=== PATIENT | male | born 1950 | race Two or more races ===

== ENCOUNTER 2025-09-16 15:12 | Inpatient (IN) | payer OTHER ==
[~2025-09-16] VITALS: Ht 162.6 cm; Wt 73.3 kg
--- NOTE | 2025-09-16 15:33 | ED.PDOC ---
History of Present Illness HPI Comments HPI: This is a 75 year old male presenting to the ED with chief complaint of high blood pressure. Patient reports that he visited [facility] today due to having clicking in his left ear last night that has since resolved, however, he was found to have high blood pressure and advised to come into the ED for further evaluation. Patient relays that he had some dizziness and blurred vision 2 days ago, but that has also since resolved. Patient states that he has never visited a doctor in his life and is pending his first PCP appointment next month. Patient notes that he is currently asymptomatic. Patient denies any chest pain, SOB, dizziness, N/V, headache, or syncope. Past Medical History: Denies Past Surgical History: Denies Social History: Denies smoking, drinking, or drug use. Medications: None Allergies: NKDA HPI: Poor Historian. Patient is completely asymptomatic Past Medical History: Past Surgical History: REVIEW OF SYSTEMS: CONSTITUTIONAL: Denies acute: fever, diaphoresis, chills, generalized weakness. HEAD: Denies acute: headache, photophobia Eyes: Denies acute: Double vision, vision loss, eye pain, eye discharge. EARS: Denies acute: tinnitus, hearing loss, ear discharge, ear pain, THROAT: Denies acute: sore throat, swelling, difficulty swallowing , pain with swallowing, change in voice. NECK: Denies acute: neck pain, neck swelling, stiff neck. HEART: Denies acute : chest pain, palpitations, LUNGS: Denies acute: SOB, wheezing, cough, hemoptysis ABDOMEN: Denies acute: abdominal pain, Nausea, Vomiting, diarrhea, melena , hematemesis, hematochezia SKIN: Denies acute: rash, redness, lesions, itchiness. EXTREMITIES: Denies acute: calf pain, numbness, tingling, weakness, denies pain in extremity. Denies acute: Low back pain. Neuro: Denies acute: focal neurological deficit, motor or sensory focal neurological deficit, tremors, seizure like activity, confusion, dizziness, change in mental status, loss of bowel or bladder function, cauda equina like symptoms. : Denies acute: dysuria, hematuria, flank pain, increase in urinary frequency. PSYCH: Denies acute: hallucination, suicidal ideation, homicidal ideation. PHYSICAL EXAM: General: ----no----acute distress, awake and alert. Head: normocephalic, atraumatic. No raccoon's eyes, no prather sign. Neck: supple, trachea is midline, no swelling. Throat: Normal phonation. Eyes:, no erythema, no purulent discharge, no proptosis, no icterus. Heart: regular rate, regular rhythm, no significant murmur appreciated. Lungs: no apparent respiratory distress, Able to speak in full sentences. No wheezing, no rhonchi, no crackles. No stridors Clear to auscultation bilaterally. Abdomen: non tender to palpation, non distended, soft, no guarding, no rebound, + bowel sounds. Neuro: Awake, Alert, oriented to name, self, situation, follows commands GCS=15. Speech is normal. Skin: no petechia, no purpura, no cyanosis, non-pale, not jaundice. Lower extremities: --no - Pitting edema no deformity, no focal swelling, no calf TTP. Makes eye contact. moves all four extremities. Face: no apparent facial droop. Ambulating in the ED independently. ED COURSE: DISCLAIMER: This medical document was created using an electronic medical record system with voice recognition software and computerized dictation system. Although this document has been carefully reviewed, there might still be some phonetic and typographical errors. Occasional wrong-word or "sound-alike" substitutions may have occurred due to the inherent limitations of voice recognition software. These areas are purely typographical due to imperfections of the software programs and do not reflect any compromise in the patient's medical care. Please read the chart carefully and recognize, using context, where these substitutions have occurred. Chief Complaint: High Blood Pressure Time Seen by MD: 15:30 Reviewed Notes: Medications, Allergies Allergies: Coded Allergies: NO KNOWN ALLERGIES (Unverified , 09/16/25) Home Meds Active Scripts Metformin HCl (Metformin Hydrochloride) 500 Mg/5 Ml Arianna, 500 MG PO BID, #60 ML 3 Refills Prov:BOB HIGHTOWER MD 09/17/25 Losartan Potassium (Losartan Potassium) 25 Mg Tab, 25 MG PO DAILY for 30 Days, #30 TAB 5 Refills Prov:BOB HIGHTOWER MD 09/17/25 Information Source: Patient Mode of Arrival: Ambulatory Was a procedure done? Was a procedure done?: No Differential Dx Considerations may include: DDX include renal disease, thyroid disease, electrolyte abnormality, increased salt intake, medications non-compliance, undiagnosed HTN, Hypertensive crisis, hypertensive urgency., drug toxicity. X-Ray, Labs, Meds, VS Vital Signs Date Time Temp Pulse Resp B/P (MAP) Pulse Ox O2 Delivery O2 Flow Rate FiO2 09/16/25 23:24 162/77 (105) 09/16/25 22:46 199/87 09/16/25 22:11 171/79 (109) 09/16/25 21:23 216/91 09/16/25 20:29 98.2 57 18 198/98 (131) 98 98.2 09/16/25 17:47 60 09/16/25 17:47 97.8 60 20 187/84 (118) 97 97.8 09/16/25 17:44 187/84 09/16/25 15:30 66 09/16/25 15:15 98.3 63 16 188/97 98 98.3 Lab Test 09/16/25 23:21 09/16/25 18:24 09/16/25 16:22 09/16/25 15:33 Range/Units POC Glucose 221 H 70-106 mg/dl Troponin I High Sensitivity 4 4 4 </=54 ng/L White Blood Count 8.2 4.4-10.8 10^3/uL Red Blood Count 5.37 4.5-5.90 10^6/uL Hemoglobin 15.6 13.5-17.5 g/dL Hematocrit 44.4 41.0-53.0 % Mean Corpuscular Volume 82.8 80.0-100.0 fL Mean Corpuscular Hemoglobin 29.1 28.0-32.0 pg Mean Corpuscular Hemoglobin Concent 35.2 32.0-36.0 g/dL Red Cell Distribution Width 12.3 11.8-14.3 % Platelet Count 268 140-450 10^3/uL Mean Platelet Volume 8.1 6.9-10.8 fL Neutrophils (%) (Auto) 68.4 37.0-80.0 % Lymphocytes (%) (Auto) 22.7 10.0-50.0 % Monocytes (%) (Auto) 6.1 0.0-12.0 % Eosinophils (%) (Auto) 1.6 0.0-7.0 % Basophils (%) (Auto) 1.2 0.0-2.0 % Neutrophils # (Auto) 5.6 1.6-8.6 10 ^3/uL Lymphocytes # (Auto) 1.9 0.4-5.4 10 ^3/uL Monocytes # (Auto) 0.5 0-1.3 10 ^3/uL Eosinophils # (Auto) 0.1 0-0.8 10 ^3/uL Basophils # (Auto) 0.1 0-0.2 10 ^3/uL Nucleated Red Blood Cells 0.0 % Sodium Level 137 136-145 mmol/L Potassium Level 4.0 3.5-5.1 mmol/L Chloride Level 102 98-107 mmol/L Carbon Dioxide Level 26 20-31 mmol/L Anion Gap 9 5-15 Blood Urea Nitrogen 8 L 9-23 mg/dL Creatinine 0.79 0.700-1.30 mg/dL Glomerular Filtration Rate Calc 94 >90 mL/min BUN/Creatinine Ratio 10.1 10.0-20.0 Serum Glucose 215 H 74-106 mg/dL Hemoglobin A1c 11.5 H <5.7 % A1C Calcium Level 9.3 8.7-10.4 mg/dL [place] [address] Ph: [phone] DIAGNOSTIC IMAGING Diagnostic Imaging Report : [id number] Signed PATIENT: JR FRANCISCO ACCT: [id number] UNIT: [id number] : 1950 LOC: ER ROOM / BED: / AGE / SEX: 75 / M ADM STATUS: REG ER SERVICE 1520 ORDERING PHYSICIAN: ABDIRASHID RAPHAEL DO PROCEDURE(s): CXRP - CHEST PORTABLE REASON: HYPERTENSION ORDER NUMBER(s): [id number], ACCESSION NUMBER(s): [id number] CHEST RADIOGRAPH Indication: HYPERTENSION Technique: Single frontal view of the chest was obtained Comparison: None FINDINGS: Lines and Tubes: None Lungs: No focal consolidation. Pleura: No effusion. No pneumothorax. Cardiomediastinal contours: Unremarkable Bones: No acute osseous abnormality. IMPRESSION: 1. Small calcified granuloma lower right lung field. 2. No infiltrates or effusions. 3. No findings of left ventricular prominence. ATED BY: HERNAN STRONG Jr., DO DICTATED DATE/TIME: 09/16/251745 SIGNED BY: HERNAN STRONG Jr., SIGNED DATE/TIME: 09/16/251745 CC: Time of 1ST Reevaluation: 16:29 Reevaluation 1ST: Unchanged Patient Education/Counseling: Diagnosis, Treatment Family Education/Counseling: No Family Present Comments MDM: patient presented with the above HPI.--hypertensive crisis----workup was initiated. patient was found with the above mentioned diagnosis. the following medications were ordered: please refer to order lists of meds and tests obtained by myself Dr. Raphael. Patient ED course and VS have been stabilized. Patient has been reassessed in the ED and remained in a stable condition. Pertinent incidental findings were discussed with the patient and/or family. Patient/family voices understanding and is agreeable with plan. Patient has been observed in the ED adequate length of time to insure improvement/stability. Escalation of care considered: Consideration of escalation to observation or admission Patient requiring multiple blood pressure IV medication intervention hydralazine, nitroglycerin, labetalol. Patient was ADMITTED to the medicine team for further evaluation and treatment of their presentation. All the reports of any imaging studies that were ordered by myself were reviewed by myself. Departure 1 Departure Time of Disposition: 19:20 Impression: Primary Impression: Hyperglycemia Additional Impression: Hypertensive crisis Disposition: ADMITTED INPATIENT Admit to: [facility] Condition: Guarded Additional Instructions: [place] [address] Ph: [phone] DIAGNOSTIC IMAGING Diagnostic Imaging Report : [id number] Signed PATIENT: JR FRANCISCO ACCT: [id number] UNIT: [id number] : 1950 LOC: ER ROOM / BED: / AGE / SEX: 75 / M ADM STATUS: REG ER SERVICE 1520 ORDERING PHYSICIAN: ABDIRASHID RAPHAEL DO PROCEDURE(s): CXRP - CHEST PORTABLE REASON: HYPERTENSION ORDER NUMBER(s): [id number], ACCESSION NUMBER(s): [id number] CHEST RADIOGRAPH Indication: HYPERTENSION Technique: Single frontal view of the chest was obtained Comparison: None FINDINGS: Lines and Tubes: None Lungs: No focal consolidation. Pleura: No effusion. No pneumothorax. Cardiomediastinal contours: Unremarkable Bones: No acute osseous abnormality. IMPRESSION: 1. Small calcified granuloma lower right lung field. 2. No infiltrates or effusions. 3. No findings of left ventricular prominence. ATED BY: HERNAN STRONG Jr., DO DICTATED DATE/TIME: 09/16/251745 SIGNED BY: HERNAN STRONG Jr., SIGNED DATE/TIME: 09/16/251745 CC: e-Prescriptions Metformin HCl (Metformin Hydrochloride) 500 Mg/5 Ml Arianna 500 MG PO BID, #60 ML 3 Refills Prov: BOB HIGHTOWER MD 09/17/25 Losartan Potassium (Losartan Potassium) 25 Mg Tab 25 MG PO DAILY for 30 Days, #30 TAB 5 Refills Prov: BOB HIGHTOWER MD 09/17/25 Discharged With: Self Critical Care Note Critical Care Time?: Yes (45 min-critical care time only) I personally scribed for ABDIRASHID RAPHAEL DO ([email or web address]) on 09/16/25 at 15:33. Electronically submitted by Mynor Michelle ([email or web address]). I personally scribed for ABDIRASHID RAPHAEL DO ([email or web address]) on 09/16/25 at 21:47. Electronically submitted by Teresa Sparks ([email or web address]). ABDIRASHID RAPHAEL DO Sep 16, 2025 15:33
[2025-09-16 15:41] LABS: Hematocrit 44.4 % (41.0-53.0); Hemoglobin 15.6 g/dL (13.5-17.5); Mean Corpuscular Hemoglobin 29.1 pg (28.0-32.0); Mean Corpuscular Volume 82.8 fL (80.0-100.0); Nucleated Red Blood Cells % 0.0 %
[2025-09-16 15:47] LABS: Chloride 102 mmol/L (98-107); Potassium 4.0 mmol/L (3.5-5.1)
[2025-09-16 15:48] LABS: Sodium 137 mmol/L (136-145)
[2025-09-16 15:49] LABS: Anion Gap 9 (5-15); Calcium 9.3 mg/dL (8.7-10.4); Carbon Dioxide 26 mmol/L (20-31)
[2025-09-16 15:54] LABS: BUN/Creatinine Ratio 10.1 (10.0-20.0)
[2025-09-16 15:56] LABS: Blood Urea Nitrogen 8 mg/dL (9-23); Glucose 215 mg/dL (74-106)
--- NOTE | 2025-09-16 16:57 | ECG ---
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
[2025-09-16] MEDS: NITROGLYCERIN 0.4 MG SL TAB SL ONE (17:44)
--- NOTE | 2025-09-16 17:49 | DVH ---
CHEST RADIOGRAPH Indication: HYPERTENSION Technique: Single frontal view of the chest was obtained Comparison: None FINDINGS: Lines and Tubes: None Lungs: No focal consolidation. Pleura: No effusion. No pneumothorax. Cardiomediastinal contours: Unremarkable Bones: No acute osseous abnormality. IMPRESSION: 1. Small calcified granuloma lower right lung field. 2. No infiltrates or effusions. 3. No findings of left ventricular prominence.
[2025-09-16] MEDS ORDERED: LABETALOL HCL 20 MG/4 ML VL IV ONE (19:30)
[2025-09-16] MEDS ORDERED: hydrALAZINE HCL 20 MG/ML VL IV PRN (21:00)
[2025-09-16] MEDS: hydrALAZINE HCL 20 MG/ML VL IV ONE (21:23)
[2025-09-16] MEDS ORDERED: ONDANSETRON HCL 4 MG/2 ML VIAL IV PRN (22:00)
[2025-09-16] MEDS ORDERED: HYDROcodone-ACET 5/325MG TAB PO PRN (22:00)
[2025-09-16] MEDS ORDERED: DEXTROSE (50%) 50ML SYRG IV PRN (22:00)
[2025-09-16] MEDS ORDERED: DOCUSATE SOD 100 MG CAP PO PRN (22:00)
[2025-09-16] MEDS ORDERED: ACETAMINOPHEN 325 MG TAB PO PRN (22:00)
--- NOTE | 2025-09-16 22:29 | DVH ---
EXAM: CT HEAD WITHOUT CONTRAST INDICATION: htn COMPARISON: None TECHNIQUE: CT of the head without intravenous contrast. Radiation Dose Information: CT Dose: CTDI volume is 56 mGy. Dose-length product is 983 mGy*cm The dose indicators for CT are the volume Computed Tomography (CT) Dose Index (CTDIvol) and the Dose Length Product (DLP), and are measured in units of mGy and mGy-cm, respectively. These indicators are not patient dose, but values generated from the CT scanner acquisition factors. The report includes radiation exposure data for exposures received during this examination. Findings: Scattered hypoattenuation in the periventricular and subcortical white matter, suggestive of chronic microvascular disease. The ventricles and sulci are mildly enlarged, compatible with generalized parenchymal volume loss. There is no mass- effect, hemorrhage, midline shift, or abnormal extra-axial fluid collection visible. No calvarial fracture. Essentially clear visualized paranasal sinuses. Mastoid air cells are clear. IMPRESSION: No acute intracranial hemorrhage or mass effect.
[2025-09-16] MEDS ORDERED: NITROGLYCERIN 0.4 MG SL TAB SL PRN (23:45)
[2025-09-16] MEDS ORDERED: MORPHINE SULFATE INJ 2 MG/ml SYRG IV PRN (23:45)
--- NOTE | 2025-09-16 23:54 | DVHHP2 ---
History of Present Illness Reason for Visit: Hypertensive urgency History of Present Illness The patient is a 75-year-old male who denies past medical history presented to [facility] ED with complaint of elevated blood pressure associated with dizziness and blurry vision for the past 2 days. Patient/son reports that he visited [facility] today due to having clicking in his left ear last night that has since resolved, however, he was found to have high blood pressure and advised to come into the ED for further evaluation. Patient was seen and evaluated in the ED, laboratory data shows WBC 8.2, platelets 268, sodium 137, potassium 4.0, BUN 8, creatinine 0.79, GFR 94, glucose 215, hemoglobin A1c 11.5, calcium 9.3, troponin 4, blood pressure 216/91 trending down to 162/77, heart rate 60, temperature 98.2 F, O2 saturation 98% on room air. Head CT showed no acute intracranial hemorrhage or mass effect. Patient was found to have type 2 diabetes mellitus, please see medication orders section in the computer. On my assessment, son at bedside, patient denied chest pain, no headache, dizziness, blurry vision, diaphoresis, shortness of breaths, no diarrhea, nausea, vomiting, fever, no chills. Patient was admitted for further evaluation and medical management. Past Medical History Denies past medical history Past Surgical History Denies all surgeries Family History Reviewed, noncontributory to the management of this case. Past Social History The patient lives at home, denies smoking, alcohol or illicit drugs abuse. Review of Systems Constitutional: Yes: Weakness; No: Fever, Chills, Sweats, Malaise, Other Eyes: Other (Blurry vision); No: Pain, Vision change, Conjunctivae inflammation, Eyelid inflammation, Redness ENT: No: Ear pain, Ear discharge, Nose pain, Nose discharge, Nose congestion, Mouth pain, Mouth swelling, Throat pain, Throat swelling, Other Respiratory: No: Cough, Dry, Shortness of breath, SOB with excertion, Wheezing, Hemoptysis, Pleuritic Pain, Sputum, Wheezing, Other Cardiovascular: Other (Hypertension); No: Chest Pain, Palpitations, Orthopnea, Paroxysmal Noc. Dyspnea, Edema, Lt Headedness Gastrointestinal: No: Nausea, Vomiting, Abdominal Pain, Diarrhea, Constipation, Melena, Hematochezia, Other Genitourinary: No Dysuria, No Frequency, No Incontinence, No Hematuria, No Retention, No Other Musculoskeletal: No: other, neck pain, shoulder pain, arm pain, back pain, hand pain, leg pain, foot pain Skin: No: Rash, Lesions, Jaundice, Bruising, Other Neurological: Other (Dizziness); No: Weakness, Numbness, Incoordination, Change in speech, Confusion, Seizures Allergies: Coded Allergies: NO KNOWN ALLERGIES (Unverified , 09/16/25) Medications Current Medications Medications Dose Ordered Sig/Grabiel Route Start Time Stop Time Status Last Admin Dose Admin Hydralazine HCl 10 mg Q6HP PRN IV 09/16/25 21:00 Amlodipine Besylate 5 mg DAILY PO 09/17/25 10:00 Losartan Potassium 25 mg DAILY PO 09/17/25 10:00 Diagnostic Test (Pha) 1 strip IQ4HR 09/17/25 00:00 Insulin Human Regular IQ4HR SC 09/17/25 00:00 Dextrose 50 ml UD PRN IV 09/16/25 22:00 Sodium Chloride 1,000 ml @ 60 mls/hr [id number] IV 09/16/25 22:00 Acetaminophen/ Hydrocodone Bitart 1 tab Q4HP PRN PO 09/16/25 22:00 Ondansetron HCl 4 mg Q4HP PRN IV 09/16/25 22:00 Docusate Sodium 100 mg BIDPRN PRN PO 09/16/25 22:00 Acetaminophen 650 mg Q6HP PRN PO 09/16/25 22:00 Exam Vital Signs Vital Signs Date Time Temp Pulse Resp B/P (MAP) Pulse Ox O2 Delivery O2 Flow Rate FiO2 09/16/25 23:24 162/77 (105) 09/16/25 20:29 98.2 57 18 98 98.2 General Appearance: Alert, Oriented X3, Cooperative, No acute distress HEENT: Atraumatic, PERRLA, EOMI, Mucous membr. moist/pink Respiratory: Normal air movement Cardiovascular: Regular rate, Normal S1, Normal S2, No murmurs Abdominal: Normal bowel sounds, Soft, No tenderness, No hepatospenomegaly, No masses Extremities: No clubbing, No cyanosis, No edema, Normal pulses, No tenderness/swelling Skin: No rashes, No breakdown, No significant lesion Neuro: Normal speech, Normal tone, Sensation intact, Cranial nerves 3-12 NL, Reflexes 2+, Other (Generalized weakness) Psych/Mental Status: Mental status NL, Mood NL Labs/Xrays Labs Test 09/16/25 23:21 09/16/25 18:24 09/16/25 15:33 Range/Units POC Glucose 221 H 70-106 mg/dl Troponin I High Sensitivity 4 </=54 ng/L White Blood Count 8.2 4.4-10.8 10^3/uL Red Blood Count 5.37 4.5-5.90 10^6/uL Hemoglobin 15.6 13.5-17.5 g/dL Hematocrit 44.4 41.0-53.0 % Mean Corpuscular Volume 82.8 80.0-100.0 fL Mean Corpuscular Hemoglobin 29.1 28.0-32.0 pg Mean Corpuscular Hemoglobin Concent 35.2 32.0-36.0 g/dL Red Cell Distribution Width 12.3 11.8-14.3 % Platelet Count 268 140-450 10^3/uL Mean Platelet Volume 8.1 6.9-10.8 fL Neutrophils (%) (Auto) 68.4 37.0-80.0 % Lymphocytes (%) (Auto) 22.7 10.0-50.0 % Monocytes (%) (Auto) 6.1 0.0-12.0 % Eosinophils (%) (Auto) 1.6 0.0-7.0 % Basophils (%) (Auto) 1.2 0.0-2.0 % Neutrophils # (Auto) 5.6 1.6-8.6 10 ^3/uL Lymphocytes # (Auto) 1.9 0.4-5.4 10 ^3/uL Monocytes # (Auto) 0.5 0-1.3 10 ^3/uL Eosinophils # (Auto) 0.1 0-0.8 10 ^3/uL Basophils # (Auto) 0.1 0-0.2 10 ^3/uL Nucleated Red Blood Cells 0.0 % Sodium Level 137 136-145 mmol/L Potassium Level 4.0 3.5-5.1 mmol/L Chloride Level 102 98-107 mmol/L Carbon Dioxide Level 26 20-31 mmol/L Anion Gap 9 5-15 Blood Urea Nitrogen 8 L 9-23 mg/dL Creatinine 0.79 0.700-1.30 mg/dL Glomerular Filtration Rate Calc 94 >90 mL/min BUN/Creatinine Ratio 10.1 10.0-20.0 Serum Glucose 215 H 74-106 mg/dL Hemoglobin A1c 11.5 H <5.7 % A1C Calcium Level 9.3 8.7-10.4 mg/dL PATIENT: JR FRANCISCO ACCT: [id number] UNIT: [id number] : 1950 LOC: ER ROOM / BED: / AGE / SEX: 75 / M ADM STATUS: REG ER SERVICE 40 ORDERING PHYSICIAN: ABDIRASHID RAPHAEL DO PROCEDURE(s): HWOCT - HEAD WITHOUT CONTRAST REASON: htn ORDER NUMBER(s): [id number], ACCESSION NUMBER(s): [id number] EXAM: CT HEAD WITHOUT CONTRAST INDICATION: htn COMPARISON: None TECHNIQUE: CT of the head without intravenous contrast. Radiation Dose Information: CT Dose: CTDI volume is 56 mGy. Dose-length product is 983 mGy*cm The dose indicators for CT are the volume Computed Tomography (CT) Dose Index (CTDIvol) and the Dose Length Product (DLP), and are measured in units of mGy and mGy-cm, respectively. These indicators are not patient dose, but values generated from the CT scanner acquisition factors. The report includes radiation exposure data for exposures received during this examination. Findings: Scattered hypoattenuation in the periventricular and subcortical white matter, suggestive of chronic microvascular disease. The ventricles and sulci are mildly enlarged, compatible with generalized parenchymal volume loss. There is no mass- effect, hemorrhage, midline shift, or abnormal extra-axial fluid collection visible. No calvarial fracture. Essentially clear visualized paranasal sinuses. Mastoid air cells are clear. IMPRESSION: No acute intracranial hemorrhage or mass effect. ORDERING PHYSICIAN: ABDIRASHID RAPHAEL DO PROCEDURE(s): CXRP - CHEST PORTABLE REASON: HYPERTENSION ORDER NUMBER(s): [id number], ACCESSION NUMBER(s): [id number] CHEST RADIOGRAPH Indication: HYPERTENSION Technique: Single frontal view of the chest was obtained Comparison: None FINDINGS: Lines and Tubes: None Lungs: No focal consolidation. Pleura: No effusion. No pneumothorax. Cardiomediastinal contours: Unremarkable Bones: No acute osseous abnormality. IMPRESSION: 1. Small calcified granuloma lower right lung field. 2. No infiltrates or effusions. 3. No findings of left ventricular prominence. SEPSIS Sepsis Screen Date sepsis recognized/suspect: Sep 16, 2025 Time Sepsis recognized/suspect: 1517 Recent Procedure: No On Antibiotic Therapy: No Respiratory Rate >20: No Heart Rate >90: No Temp<36 C (96.8 F) or >38.3 C: No SBP <90 or MAP <65 mmHG: No New Acute Mental Status Change: No Is the patient on CPAP, BIPAP,: No Physician Orders Hydralazine Injection (Apresoline Inject (09/16/25 21:00) Amlodipine Tablet (Norvasc Tablet) (09/17/25 10:00) Losartan Tablet (Cozaar Tablet) (09/17/25 10:00) Head Without Contrast (09/16/25 21:41) Consistent Carb(Ccho)Diabetes (09/17/25 Breakfast) Glucose Blood (Accu-Chek Comfort Curve T (09/17/25 00:00) Insulin R (Human) (Insulin R) (09/17/25 00:00) Dextrose 50% Syringe (09/16/25 22:00) Allergies (09/16/25 21:51) Code Status (09/16/25 21:51) Sodium Chloride 0.9% (09/16/25 22:00) Oxygen Per Hour (09/16/25 21:51) Hydrocodone-Acet 5/325mg Tab (Soper 5/32 (09/16/25 22:00) Ondansetron Hcl (Zofran) (09/16/25 22:00) Docusate Sodium Capsule (Colace Capsule) (09/16/25 22:00) Complete Blood Count (09/17/25 04:00) Comprehensive Metabolic Panel (09/17/25 04:00) Condition: Serious (09/16/25 21:51) Acetaminophen Tablet (Tylenol Tablet) (09/16/25 22:00) Bedrest With Bathroom Privileg (09/16/25 21:51) Sequential Compression Device (09/16/25 ) * Dietary Consult (09/16/25 23:38) Admit (09/16/25 23:38) Nitroglycerin Sublingual (Ntrostat Subli (09/16/25 23:45) Morphine Sulfate Injection (09/16/25 23:45) Stat Ekg For Chest Pain (09/16/25 23:38) Notify Of Changes From Base (09/16/25 23:38) [employer] Supervisor For 24 Hours (09/16/25 23:38) Emergency Dysrhythmia Protocol (09/16/25 23:38) Vital Signs Date Time Temp Pulse Resp B/P (MAP) Pulse Ox O2 Delivery O2 Flow Rate FiO2 09/16/25 23:24 162/77 (105) 09/16/25 22:11 171/79 (109) 09/16/25 21:23 216/91 09/16/25 20:29 98.2 57 18 198/98 (131) 98 98.2 09/16/25 17:47 60 09/16/25 17:47 97.8 60 20 187/84 (118) 97 97.8 09/16/25 17:44 187/84 Laboratory Tests Test 09/16/25 15:33 White Blood Count 8.2 10^3/uL (4.4-10.8) Medications Medications Dose Ordered Sig/Grabiel Route Start Time Stop Time Status Last Admin Dose Admin Hydralazine HCl 5 mg ONCE ONCE IV 09/16/25 19:30 09/16/25 19:37 DC 09/16/25 21:23 5 MG Nitroglycerin 0.4 mg ONCE ONCE SL 09/16/25 15:30 09/16/25 15:31 DC 09/16/25 17:44 0.4 MG Assessment/Plan Assessment/Plan Hypertensive urgency New onset type 2 diabetes mellitus Generalized weakness Type 2 diabetes mellitus with hyperglycemia Plan 1. Admit to telemetry unit 2. Breathing treatment 3. Pain control management 4. Management of fluids and electrolytes 5. Consultation for hospitalist 6. Diagnostic tests head CT 7. DVT prophylaxis-on SCDs 8. Repeat labs CBC, CMP in a.m. 9. Continue with current medical management 10. Treatment plan discussed with patient/son and RN. Patient/son verbalized understanding. Plan discussed with: Patient, Son, Other (RN) My Orders Orders - JEREMI CHAN DNP Procedure Category Date Status Time Hydralazine Injection PHA 09/16/25 In Process (Apresoline Inject 21:00 Amlodipine Tablet PHA 09/17/25 In Process (Norvasc Tablet) 10:00 Losartan Tablet PHA 09/17/25 In Process (Cozaar Tablet) 10:00 Consistent DIET 09/17/25 Transmitted Carb(Ccho)Diabetes Breakfast Glucose Blood PHA 09/17/25 In Process (Accu-Chek Comfort 00:00 Insulin R (Human) PHA 09/17/25 In Process (Insulin R) 00:00 Dextrose 50% Syringe PHA 09/16/25 In Process 22:00 Allergies BEVERLY 09/16/25 In Process 21:51 Code Status CODE 09/16/25 Transmitted 21:51 Sodium Chloride 0.9% PHA 09/16/25 In Process 22:00 Oxygen Per Hour RT 09/16/25 Transmitted 21:51 Hydrocodone-Acet PHA 09/16/25 In Process 5/325mg Tab (Soper 22:00 Ondansetron Hcl PHA 09/16/25 In Process (Zofran) 22:00 Docusate Sodium PHA 09/16/25 In Process Capsule (Colace 22:00 Complete Blood Count LAB 09/17/25 Verified 04:00 Comprehensive LAB 09/17/25 Verified Metabolic Panel 04:00 Condition: Serious BEVERLY 09/16/25 In Process 21:51 Acetaminophen Tablet PHA 09/16/25 In Process (Tylenol Tablet) 22:00 Bedrest With Bathroom BEVERLY 09/16/25 In Process Privileg 21:51 Sequential BEVERLY 09/16/25 In Process Compression Device * Dietary Consult CONS 09/16/25 Verified 23:38 Admit ADMIT 09/16/25 Verified 23:38 Nitroglycerin PHA 09/16/25 Verified Sublingual (Ntrostat 23:45 Morphine Sulfate PHA 09/16/25 Verified Injection 23:45 Stat Ekg For Chest [facility] 09/16/25 Verified Pain 23:38 Notify Md Of Changes [facility] 09/16/25 Verified From Base 23:38 [employer] Supervisor For [facility] 09/16/25 Verified 24 Hours 23:38 Emergency Dysrhythmia [facility] 09/16/25 Verified Protocol 23:38 Problem List: (1) Hypertensive urgency (2) New onset type 2 diabetes mellitus (3) Generalized weakness (4) Type 2 diabetes mellitus with hyperglycemia Date of Service: Sep 16, 2025 Billing Provider: JEREMI CHAN DNP Common Visit Codes: [id number] INP/OBS CARE (HIGH) JEREMI CHAN DNP Sep 16, 2025 23:54
[2025-09-17] VITALS (7 sets, daily range): BP systolic 127–154; BP diastolic 65–72; PULSE 55–72; RESP 16–18; TEMP 37.2; O2SAT 95–97
[2025-09-17] MEDS: ACCU-CHEK COMFORT CURVE STRIP VI SCH (02:00)
[2025-09-17] MEDS: InsuLIN REG 1unit/0.01ml Soln (100units/ml) SC SCH (02:20)
[2025-09-17] MEDS: SODIUM CHLORIDE 0.9% 1,000 ML IV SCH (03:47)
[2025-09-17 05:43] LABS: Hematocrit 42.8 % (41.0-53.0); Hemoglobin 14.8 g/dL (13.5-17.5); Mean Corpuscular Hemoglobin 29.1 pg (28.0-32.0); Mean Corpuscular Volume 84.1 fL (80.0-100.0); Nucleated Red Blood Cells % 0.1 %
[2025-09-17 05:54] LABS: Alanine Aminotransferase 18 U/L (7-40); Alkaline Phosphatase 79 U/L (46-116); Anion Gap 11 (5-15); BUN/Creatinine Ratio 12.9 (10.0-20.0); Calcium 9.1 mg/dL (8.7-10.4); Carbon Dioxide 25 mmol/L (20-31); Chloride 102 mmol/L (98-107); Sodium 138 mmol/L (136-145); Total Protein 7.4 g/dL (5.7-8.2)
[2025-09-17 05:55] LABS: Albumin 4.2 g/dL (3.2-4.8)
[2025-09-17 05:56] LABS: Bilirubin, Total 0.7 mg/dL (0.2-1.0)
[2025-09-17 05:58] LABS: Blood Urea Nitrogen 9 mg/dL (9-23); Glucose 145 mg/dL (74-106); Potassium 3.4 mmol/L (3.5-5.1)
[2025-09-17] MEDS: LOSARTAN POTASSIUM 25 MG TAB PO SCH (10:14)
[2025-09-17] MEDS ORDERED: LOS25T PO (12:10)
[2025-09-17] MEDS ORDERED: METF500S3 PO (12:10)
--- NOTE | 2025-09-17 12:13 | DVHDS2 ---
Discharge Summary Date of Admission Sep 16, 2025 at 23:33 Date of Discharge: Sep 17, 2025 Labs/Diagnostic Data: Laboratory Results Test 09/17/25 11:32 09/17/25 05:01 09/16/25 18:24 09/16/25 15:33 POC Glucose 201 mg/dl (70-106) White Blood Count 7.6 10^3/uL (4.4-10.8) Red Blood Count 5.08 10^6/uL (4.5-5.90) Hemoglobin 14.8 g/dL (13.5-17.5) Hematocrit 42.8 % (41.0-53.0) Mean Corpuscular Volume 84.1 fL (80.0-100.0) Mean Corpuscular Hemoglobin 29.1 pg (28.0-32.0) Mean Corpuscular Hemoglobin Concent 34.6 g/dL (32.0-36.0) Red Cell Distribution Width 12.7 % (11.8-14.3) Platelet Count 250 10^3/uL (140-450) Mean Platelet Volume 8.8 fL (6.9-10.8) Neutrophils (%) (Auto) 66.8 % (37.0-80.0) Lymphocytes (%) (Auto) 21.9 % (10.0-50.0) Monocytes (%) (Auto) 7.9 % (0.0-12.0) Eosinophils (%) (Auto) 1.6 % (0.0-7.0) Basophils (%) (Auto) 1.8 % (0.0-2.0) Neutrophils # (Auto) 5.1 10 ^3/uL (1.6-8.6) Lymphocytes # (Auto) 1.7 10 ^3/uL (0.4-5.4) Monocytes # (Auto) 0.6 10 ^3/uL (0-1.3) Eosinophils # (Auto) 0.1 10 ^3/uL (0-0.8) Basophils # (Auto) 0.1 10 ^3/uL (0-0.2) Nucleated Red Blood Cells 0.1 % Sodium Level 138 mmol/L (136-145) Potassium Level 3.4 mmol/L (3.5-5.1) Chloride Level 102 mmol/L (98-107) Carbon Dioxide Level 25 mmol/L (20-31) Anion Gap 11 (5-15) Blood Urea Nitrogen 9 mg/dL (9-23) Creatinine 0.70 mg/dL (0.700-1.30) Glomerular Filtration Rate Calc 97 mL/min (>90) BUN/Creatinine Ratio 12.9 (10.0-20.0) Serum Glucose 145 mg/dL (74-106) Calcium Level 9.1 mg/dL (8.7-10.4) Total Bilirubin 0.7 mg/dL (0.2-1.0) Aspartate Amino Transferase (AST) 17 U/L (13-40) Alanine Aminotransferase (ALT) 18 U/L (7-40) Alkaline Phosphatase 79 U/L (46-116) Total Protein 7.4 g/dL (5.7-8.2) Albumin 4.2 g/dL (3.2-4.8) Troponin I High Sensitivity 4 ng/L (</=54) Hemoglobin A1c 11.5 % A1C (<5.7) Other Laboratory Tests 09/17/25 05:01 Brief Hx & Hospital Course: Final diagnoses: New onset type 2 diabetes Hypertension 75-year-old male was admitted with high blood pressure and high blood glucose He does not take any medications at home No past medical history His hemoglobin A1c is 11.5 His blood pressure on admission was 188/97 He was started on amlodipine and losartan His blood pressure is better now He can be discharged home on metformin 500 mg twice a day Losartan 25 mg daily Follow up with his primary care physician as soon as possible Condition at Discharge: Stable Final Diagnosis/Problems List New onset type 2 diabetes New onset hypertension Discharge Disposition: Home SNF Discharge Will this Physician continue t: No Discharge Instruct/Medications Diet: Consistent carbohydrate, Cardiac 2g Na,low cholest Activity: No Restrictions, As Tolerated Follow Up/Referral: PCP as soon as possible Medications: Metformin 500 mg twice a day Losartan 25 mg daily Scheduled Hydralazine Hcl (Hydralazine Hcl), 25 MG PO BID Losartan Potassium (Losartan Potassium), 25 MG PO DAILY Metformin HCl (Metformin Hydrochloride), 500 MG PO BID Scheduled PRN Diphenhydramine HCl (Eql Allergy Relief), 25 MG PO QID PRN Discharge Statement: "Patient was advised to return to the ER or call 911 if any headaches, dizziness, shortness of breath, chest pain, abdominal pain, bleeding, fevers, or worsening of medical condition. Patient was counseled about treatment plan, medications, possible side effects, patientverbalized understanding. All questions were answered to the best of my ability. This discharge took greater then 30 minutes in planning, reviewing documentation, counseling the patient, and discussing with other team members." ASSESSMENT ASSESSMENT Assessment New onset type 2 diabetes New onset hypertension Date of Service: Sep 17, 2025 Billing Provider: BOB HIGHTOWER MD Common Visit Codes: NOT BILLABLE BOB HIGHTOWER MD Sep 17, 2025 12:13
== END 2025-09-17 16:00 | disposition home or self-care (01) | DRG 305 ==
LOC: ER 15:12 → OVERFLOW 23:33 → TELE-EAST 09-17 05:09
PROVIDERS: ADMIT Nurse Practitioner Family; ATTEND Nurse Practitioner Family
DX: I16.0 Hypertensive urgency (principal); E11.65 Type 2 diabetes mellitus with hyperglycemia; Z79.899 Other long term (current) drug therapy; Z79.84 Long term (current) use of oral hypoglycemic drugs
CPT/HCPCS: 36415; 70450; 71045; 80048; 80053; 82962; 83036; 84484; 85025; 93005; 99291; G0378; J1815

== ENCOUNTER 2025-09-20 21:39 | Emergency (ER) | payer OTHER ==
[~2025-09-20] VITALS: Ht 162.6 cm; Wt 75.6 kg
[~2025-09-20 21:39] MED LIST: LOS25T PO; METF500S3 PO
--- NOTE | 2025-09-20 22:37 | ED.PDOC ---
HPI Comments 75-year-old male with a PMH of hypertension and type 2 diabetes mellitus, diagnosed on 09/17/25 at this facility has come with the chief complaints of high blood pressure. Patient reports that 3 days ago, he had come to the ER for pulsating sensation in the left ear, intermittent in nature and was told he had hypertension and type 2 diabetes mellitus for which he was prescribed losartan 25 and metformin 500 mg. 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 On arrival, patient's BP was 191/78 mmHg; rest of the vitals were stable with temp 97.7, HR 65, RR 12 and SpO2 99% in r.a. On inquiry, patient denied any headache, blurring of vision, nausea, vomiting, fever, chills, cough, chest pain, palpitations, shortness of breath. He states that he has an appointment with a new PCP on 10/07/25. Chief Complaint: High Blood Pressure Time Seen by MD: 22:00 Reviewed Notes: Medications, Allergies Allergies: Coded Allergies: NO KNOWN ALLERGIES (Unverified , 09/16/25) Home Meds Active Scripts Metformin HCl (Metformin Hydrochloride) 500 Mg/5 Ml Arianna, 500 MG PO BID, #60 ML 3 Refills Prov:BOB HIGHTOWER MD 09/17/25 Losartan Potassium (Losartan Potassium) 25 Mg Tab, 25 MG PO DAILY for 30 Days, #30 TAB 5 Refills Prov:BOB HIGHTOWER MD 09/17/25 Information Source: Patient Mode of Arrival: Ambulatory Severity: Mild Timing: Days Duration: Since onset Prehospital treatment: None Onset: At Rest Cardiac Risk Factors: HTN, Diabetes PE Risk Factors: None History of: None Modifying Factors: Nothing Associated Signs and Symptoms: None Past Medical History PAST MEDICAL HISTORY: DM, HTN Surgical History: Denies all surgeries Family History Family History: Reviewed,noncontributory to illness Social History Smoker: Non-Smoker Alcohol: Denies ETOH Use Drugs: Denies Drug Use Lives In: Home Constitutional: denies: chills, diaphoresis, fatigue, fever, malaise, sweats, weakness, others EENTM: reports: others (Pulsating sensation in left ear); denies: blurred vision, double vision, ear bleeding, ear discharge, ear drainage, ear pain, ear ringing, eye pain, eye redness, hearing loss, mouth pain, mouth swelling, nasal discharge, nose bleeding, nose congestion, nose pain, photophobia, tearing, throat pain, throat swelling, voice changes Respiratory: denies: cough, hemoptysis, orthopnea, SOB at rest, shortness of breath, SOB with excertion, stridor, wheezing, others Cardiovascular: denies: chest pain, dizzy spells, diaphoresis, Dyspnea on exertion, edema, irregular heart beat, left arm pain, lightheadedness, palpitations, PND, syncope, others Gastrointestinal: denies: abdomen distended, abdominal pain, blood streaked bowels, constipated, diarrhea, dysphagia, difficulty swallowing, hematemesis, melena, nausea, poor appetite, poor fluid intake, rectal bleeding, rectal pain, vomiting, others Genitourinary: denies: burning, dysuria, flank pain, frequency, hematuria, incontinence, penile discharge, penile sore, pain, testicle pain, testicle swelling, urgency, others Neurological: denies: dizziness, fainting, headache, left sided numbness, left sided weakness, numbness, paresthesia, pre-existing deficit, right sided numbness, right sided weakness, seizure, speech problems, tingling, tremors, weakness, others Musculoskeletal: denies: back pain, gout, joint pain, joint swelling, muscle pain, muscle stiffness, neck pain, others Integumetry: denies: bruises, change in color, change in hair/nails, dryness, laceration, lesions, lumps, rash, wounds, others Allergic/Immunocompromised: denies: Difficulty Healing, Frequent Infections, Hives, Itching, others Hematologic/Lymphatic: denies: anemia, blood clots, easy bleeding, easy bruising, swollen glands, others Endocrine: denies: excessive hunger, excessive sweating, excessive thirst, excessive urination, flushing, intolerance to cold, intolerance to heat, unexplained weight gain, unexplained weight loss, others Psychiatric: denies: anxiety, bipolar disorder, depression, hopeless, panic disorder, schizophrenia, sleepless, suicidal, others Physical Exam General Appearance: Normal HEENT: Other (Maintains eye contact, No pallor, no icterus, no JVD) Neck: Full Range of Motion, Non-Tender, Normal, Normal Inspection, Other (No palpable lymph nodes, no accessory muscles of respiration used) Respiratory: No Accessory Muscle Use, Normal Breath Sounds, Other (No wheezing, no stridor, no rhonchi) Cardiovascular: No Edema, No JVD, No Murmur, Regular Rate/Rhythm Breast Exam: Deferred Gastrointestinal: No Organomegaly, Non Tender, No Pulsatile Mass, Normal Bowel Sounds, Other (No rebound tenderness, no masses felt) Genitalia: Deferred Pelvic: Deferred Rectal: Deferred Extremities: No calf tenderness, Normal range of motion, No pedal edema Neurologic: None, Other (Sensory motor deficits, normal gait, no facial droop noted) Cerebellar Function: Normal Reflexes: Normal Skin: Normal Color Lymphatic: Other (No cervical adenopathy) Was a procedure done? Was a procedure done?: No CP Differential Dx Differential Diagnosis: Other Other Differential Diagnosis Hypertensive urgency Differential Diagnosis: HTN Essential X-Ray, Labs, Meds, VS Vital Signs Date Time Temp Pulse Resp B/P (MAP) Pulse Ox O2 Delivery O2 Flow Rate FiO2 09/20/25 21:43 97.7 65 12 191/78 99 97.7 Time of 1ST Reevaluation: 22:36 Reevaluation 1ST: Improved Patient Education/Counseling: Diagnosis, Treatment Family Education/Counseling: Diagnosis, Treatment Comments Patient was given clonidine 0.1 mg p.o. stat for high blood pressure/hypertensive urgency. I discussed with the patient regarding follow up with primary care physician, patient states that appointment has been made for 10/07/2025. Patient counseled to adhere to a low-salt diet and to continue losartan 25 mg until PCP advice is otherwise. All questions and queries answe red. Patient communicated understanding. He is stable and is being discharged. SEPSIS Sepsis Screen Date sepsis recognized/suspect: Sep 20, 2025 Time Sepsis recognized/suspect: 2146 Recent Procedure: No On Antibiotic Therapy: No Respiratory Rate >20: No Heart Rate >90: No Temp<36 C (96.8 F) or >38.3 C: No SBP <90 or MAP <65 mmHG: No New Acute Mental Status Change: No Is the patient on CPAP, BIPAP,: No Vital Signs Date Time Temp Pulse Resp B/P (MAP) Pulse Ox O2 Delivery O2 Flow Rate FiO2 09/20/25 21:43 97.7 65 12 191/78 99 97.7 Departure 1 Departure Time of Disposition: 22:40 Impression: Primary Impression: Hypertensive urgency Disposition: 01 HOME / SELF CARE / HOMELESS Condition: Fair Discharged With: Self Critical Care Note Critical Care Time?: No Stability Stability form required: No Heart Score Heart Score: Heart Score Response (Comments) Value History N/A 0 EKG N/A 0 Age N/A 0 Risk Factors N/A 0 Troponin N/A 0 Total 0 KAREN PURDY Sep 20, 2025 22:37 BELA PLAZA MD Sep 20, 2025 22:41
[2025-09-20 23:00] VITALS: PULSE 88; RESP 17; O2SAT 98
[2025-09-21 00:16] VITALS: BP 142/74; PULSE 62; RESP 14; TEMP 97.8; O2SAT 96
[2025-09-21] MEDS ORDERED: [UNRECOGNIZED DRUG - CODE] PO (02:57)
== END 2025-09-21 00:35 | disposition home or self-care (01) ==
LOC: ER 21:39
DX: I16.0 Hypertensive urgency (principal); I10 Essential (primary) hypertension; E11.9 Type 2 diabetes mellitus without complications; Z79.899 Other long term (current) drug therapy; Z79.84 Long term (current) use of oral hypoglycemic drugs

== ENCOUNTER 2025-09-21 01:26 | Emergency (ER) | payer OTHER ==
[~2025-09-21] VITALS: Ht 162.6 cm; Wt 74.6 kg
[2025-09-21 01:27] VITALS: TEMP 97.6
[2025-09-21] MEDS: diphenhydrAMINE HCL 50 MG/1 ML VL IV ONE (02:09)
[2025-09-21] MEDS: FAMOTIDINE (10MG/ML) 2ML VL IV ONE (02:18)
[2025-09-21 02:26] VITALS: BP 145/79; PULSE 90; RESP 16; O2SAT 99
[2025-09-21] MEDS ORDERED: [UNRECOGNIZED DRUG - CODE] PO (02:57)
--- NOTE | 2025-09-21 02:58 | ED.PDOC ---
HPI Allergic reaction HPI Comments 75-year-old male complaining of itching to bilateral palms and face. States he was seen here earlier today in given clonidine. States he took a pill and then shortly after after being discharge, started feeling itching on his hands and face. No shortness of breath. Nothing makes it better, nothing makes it worse. Took no other medications. Chief Complaint: Allergic Reaction Time Seen by MD: 01:28 Reviewed Notes: Nurses Notes Allergies: Coded Allergies: NO KNOWN ALLERGIES (Unverified , 09/16/25) Home Meds Active Scripts Metformin HCl (Metformin Hydrochloride) 500 Mg/5 Ml Arianna, 500 MG PO BID, #60 ML 3 Refills Prov:BOB HIGHTOWER MD 09/17/25 Losartan Potassium (Losartan Potassium) 25 Mg Tab, 25 MG PO DAILY for 30 Days, #30 TAB 5 Refills Prov:BOB HIGHTOWER MD 09/17/25 Information Source: Patient Mode of Arrival: Ambulatory Past Medical History PAST MEDICAL HISTORY: DM, HTN Surgical History: Denies all surgeries Family History Family History: Reviewed,noncontributory to illness Social History Smoker: Non-Smoker Alcohol: Denies ETOH Use Drugs: Denies Drug Use Lives In: Home Constitutional: denies: chills, diaphoresis, fatigue, fever, malaise, sweats, weakness, others EENTM: denies: blurred vision, double vision, ear bleeding, ear discharge, ear drainage, ear pain, ear ringing, eye pain, eye redness, hearing loss, mouth pain, mouth swelling, nasal discharge, nose bleeding, nose congestion, nose pain, photophobia, tearing, throat pain, throat swelling, voice changes, others Respiratory: denies: cough, hemoptysis, orthopnea, SOB at rest, shortness of breath, SOB with excertion, stridor, wheezing, others Cardiovascular: denies: chest pain, dizzy spells, diaphoresis, Dyspnea on exertion, edema, irregular heart beat, left arm pain, lightheadedness, pal pitations, PND, syncope, others Gastrointestinal: denies: abdomen distended, abdominal pain, blood streaked bowels, constipated, diarrhea, dysphagia, difficulty swallowing, hematemesis, melena, nausea, poor appetite, poor fluid intake, rectal bleeding, rectal pain, vomiting, others Genitourinary: denies: burning, dysuria, flank pain, frequency, hematuria, incontinence, penile discharge, penile sore, pain, testicle pain, testicle swelling, urgency, others Neurological: denies: dizziness, fainting, headache, left sided numbness, left sided weakness, numbness, paresthesia, pre-existing deficit, right sided numbness, right sided weakness, seizure, speech problems, tingling, tremors, weakness, others Musculoskeletal: denies: back pain, gout, joint pain, joint swelling, muscle pain, muscle stiffness, neck pain, others Integumetry: reports: rash; denies: bruises, change in color, change in hair/nails, dryness, laceration, lesions, lumps, wounds, others Physical Exam General Appearance: No Apparent Distress, Normal HEENT: Normal ENT Inspection, Pharynx Normal, TMs Normal Neck: Full Range of Motion, Non-Tender, Normal, Normal Inspection Respiratory: Chest Non-Tender, Lungs Clear, No Accessory Muscle Use, No Respiratory Distress, Normal Breath Sounds Cardiovascular: No Edema, No JVD, No Murmur, No Gallop, Normal Peripheral Pulses, Regular Rate/Rhythm Breast Exam: Deferred Gastrointestinal: No Organomegaly, Non Tender, No Pulsatile Mass, Normal Bowel Sounds, Soft Genitalia: Deferred Pelvic: Deferred Rectal: Deferred Extremities: No calf tenderness, Normal capillary refill, Normal inspection, Normal range of motion, Non-tender, No pedal edema Musculoskeletal : Apperance: Normal Neurologic: Alert, 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 Was a procedure done?: No Differential diagnosis (all) Differential Diagnosis: Anaphylaxis, Angioedema, Contact Dermatitis, Drug Reaction X-Ray, Labs, Meds, VS Vital Signs Date Time Temp Pulse Resp B/P (MAP) Pulse Ox O2 Delivery O2 Flow Rate FiO2 09/21/25 02:26 90 Room Air* 0 21 09/21/25 02:26 90 16 145/79 (101) 99 09/21/25 01:27 97.6 62 14 179/101 98 97.6 Current Medications Medications (Trade) Dose Ordered Sig/Grabiel Route Start Time Stop Time Status Last Admin Diphenhydramine HCl (Benadryl Injection) 25 mg ONCE ONCE IV 09/21/25 01:45 09/21/25 01:46 DC 09/21/25 02:09 Dexamethasone Sodium Phosphate (Decadron Injection) 10 mg ONCE ONCE IV 09/21/25 01:45 09/21/25 01:46 DC 09/21/25 02:09 Famotidine (Pepcid Injection) 20 mg ONCE ONCE IV 09/21/25 01:45 09/21/25 01:46 DC 09/21/25 02:18 X-Ray, Labs, Meds, VS Comment Imaging was reviewed by this provider, there is no obvious pathological or acute disease process. Pending radiology review Labs were reviewed by this provider, no abnormalities Vital signs reviewed by this provider, clinically stable Time of 1ST Reevaluation: 02:58 Reevaluation 1ST: Improved Patient Education/Counseling: Diagnosis, Treatment, Need For Follow Up (Follow up with PCP next available appointment. Discontinue clonidine.) Family Education/Counseling: Diagnosis SEPSIS Sepsis Screen Date sepsis recognized/suspect: Sep 21, 2025 Time Sepsis recognized/suspect: 0127 Recent Procedure: No On Antibiotic Therapy: No Respiratory Rate >20: No Heart Rate >90: No Temp<36 C (96.8 F) or >38.3 C: No SBP <90 or MAP <65 mmHG: No New Acute Mental Status Change: No Is the patient on CPAP, BIPAP,: No Vital Signs Date Time Temp Pulse Resp B/P (MAP) Pulse Ox O2 Delivery O2 Flow Rate FiO2 09/21/25 02:26 90 Room Air* 0 21 09/21/25 02:26 90 16 145/79 (101) 99 09/21/25 01:27 97.6 62 14 179/101 98 97.6 Medications Medications Dose Ordered Sig/Grabiel Route Start Time Stop Time Status Last Admin Dose Admin Dexamethasone Sodium Phosphate 10 mg ONCE ONCE IV 09/21/25 01:45 09/21/25 01:46 DC 09/21/25 02:09 Diphenhydramine HCl 25 mg ONCE ONCE IV 09/21/25 01:45 09/21/25 01:46 DC 09/21/25 02:09 Famotidine 20 mg ONCE ONCE IV 09/21/25 01:45 09/21/25 01:46 DC 09/21/25 02:18 Departure 1 Departure Time of Disposition: 02:55 Impression: Primary Impression: Drug reaction Qualified Codes: T50.905A - Adverse effect of unspecified drugs, medicaments and biological substances, initial encounter Disposition: HOME / SELF CARE / HOMELESS Condition: Stable e-Prescriptions Diphenhydramine HCl (Eql Allergy Relief) 25 Mg Tab 25 MG PO QID PRN, #50 TAB Prov: PATRICIA DEL TORO 09/21/25 Discharged With: Self Critical Care Note Critical Care Time?: No Stability Stability form required: No Heart Score Heart Score: Heart Score Response (Comments) Value History N/A 0 EKG N/A 0 Age N/A 0 Risk Factors N/A 0 Troponin N/A 0 Total 0 PATRICIA DEL TORO Sep 21, 2025 02:58
== END 2025-09-21 03:15 | disposition home or self-care (01) ==
LOC: ER 01:26
DX: L29.9 Pruritus, unspecified (principal); T50.915A Adverse effect of multiple unspecified drugs, medicaments and biological substances, initial encounter; I10 Essential (primary) hypertension; E11.9 Type 2 diabetes mellitus without complications; Z79.899 Other long term (current) drug therapy; Z79.84 Long term (current) use of oral hypoglycemic drugs; Y92.89 Other specified places as the place of occurrence of the external cause
CPT/HCPCS: 96374; 96375; 99284; J1100; J1200; J3490

== ENCOUNTER 2025-09-23 21:17 | Emergency (ER) | payer OTHER ==
[~2025-09-23] VITALS: Ht 157.5 cm; Wt 72.6 kg
[~2025-09-23 21:17] MED LIST changes: +[UNRECOGNIZED DRUG - CODE] PO
[2025-09-23 22:53] LABS: Hematocrit 43.4 % (41.0-53.0); Hemoglobin 15.4 g/dL (13.5-17.5); Mean Corpuscular Hemoglobin 29.2 pg (28.0-32.0); Mean Corpuscular Volume 82.1 fL (80.0-100.0); Nucleated Red Blood Cells % 0.0 %
--- NOTE | 2025-09-23 22:53 | ED.PDOC ---
History of Present Illness HPI Comments 75-year-old male who came to ER for high blood pressure. Patient has history of hypertension, claims he has good compliance to his medications. His blood pressure has been elevated recently. Was 187/84 mm Hg at home. Upon arrival it was 154/94 mm Hg. Patient denies chest pains or shortness of breath Chief Complaint: High Blood Pressure Time Seen by MD: 22:53 Reviewed Notes: Nurses Notes Allergies: Coded Allergies: NO KNOWN ALLERGIES (Unverified , 09/16/25) Home Meds Active Scripts Hydralazine Hcl (Hydralazine Hcl) 25 Mg Tab, 25 MG PO BID for 90 Days, #180 TAB 3 Refills Prov:POLLY CHANG MD 09/23/25 Diphenhydramine HCl (Eql Allergy Relief) 25 Mg Tab, 25 MG PO QID PRN, #50 TAB Prov:PATRICIA DEL TORO 09/21/25 Metformin HCl (Metformin Hydrochloride) 500 Mg/5 Ml Arianna, 500 MG PO BID, #60 ML 3 Refills Prov:BOB HIGHTOWER MD 09/17/25 Losartan Potassium (Losartan Potassium) 25 Mg Tab, 25 MG PO DAILY for 30 Days, #30 TAB 5 Refills Prov:BOB HIGHTOWER MD 09/17/25 Information Source: Patient Mode of Arrival: Ambulatory Past Medical History PAST MEDICAL HISTORY: DM, HTN Surgical History: Denies all surgeries Family History Family History: Reviewed,noncontributory to illness Social History Smoker: Non-Smoker Alcohol: Denies ETOH Use Drugs: Denies Drug Use Lives In: Home Constitutional: denies: chills, diaphoresis, fatigue, fever, malaise, sweats, weakness, others EENTM: denies: blurred vision, double vision, ear bleeding, ear discharge, ear drainage, ear pain, ear ringing, eye pain, eye redness, hearing loss, mouth pain, mouth swelling, nasal discharge, nose bleeding, nose congestion, nose pain, photophobia, tearing, throat pain, throat swelling, voice changes, others Respiratory: denies: cough, hemoptysis, orthopnea, SOB at rest, shortness of breath, SOB with excertion, stridor, wheezing, others Cardiovascular: denies: chest pain, dizzy spells, diaphoresis, Dyspnea on exertion, edema, irregular heart beat, left arm pain, lightheadedness, palpi tations, PND, syncope, others Gastrointestinal: denies: abdomen distended, abdominal pain, blood streaked bowels, constipated, diarrhea, dysphagia, difficulty swallowing, hematemesis, melena, nausea, poor appetite, poor fluid intake, rectal bleeding, rectal pain, vomiting, others Genitourinary: denies: burning, dysuria, flank pain, frequency, hematuria, incontinence, penile discharge, penile sore, pain, testicle pain, testicle swelling, urgency, others Neurological: denies: dizziness, fainting, headache, left sided numbness, left sided weakness, numbness, paresthesia, pre-existing deficit, right sided numbness, right sided weakness, seizure, speech problems, tingling, tremors, weakness, others Musculoskeletal: denies: back pain, gout, joint pain, joint swelling, muscle pain, muscle stiffness, neck pain, others Integumetry: denies: bruises, change in color, change in hair/nails, dryness, laceration, lesions, lumps, rash, wounds, others Allergic/Immunocompromised: denies: Difficulty Healing, Frequent Infections, Hives, Itching, others Hematologic/Lymphatic: denies: anemia, blood clots, easy bleeding, easy bruis ing, swollen glands, others Endocrine: denies: excessive hunger, excessive sweating, excessive thirst, exc essive urination, flushing, intolerance to cold, intolerance to heat, unexplained weight gain, unexplained weight loss, others Psychiatric: denies: anxiety, bipolar disorder, depression, hopeless, panic disorder, schizophrenia, sleepless, suicidal, others Physical Exam General Appearance: No Apparent Distress, Normal HEENT: Normal ENT Inspection, Pharynx Normal, TMs Normal Neck: Full Range of Motion, Non-Tender, Normal, Normal Inspection Respiratory: Chest Non-Tender, Lungs Clear, No Accessory Muscle Use, No Resp iratory Distress, Normal Breath Sounds Cardiovascular: No Edema, No JVD, No Murmur, No Gallop, Normal Peripheral Pulses, Regular Rate/Rhythm Breast Exam: Deferred Gastrointestinal: No Organomegaly, Non Tender, No Pulsatile Mass, Normal Bowel Sounds, Soft Genitalia: Deferred Pelvic: Deferred Rectal: Deferred Extremities: No calf tenderness, Normal capillary refill, Normal inspection, Normal range of motion, Non-tender, No pedal edema Musculoskeletal : Apperance: Normal Neurologic: Alert, pillow cleaner II-XII nml as Tested, No Motor Deficits, Normal Affect, Normal Mood, No Sensory Deficits Cerebellar Function: Normal Reflexes: Normal Skin: Dry, Normal Color, Warm Lymphatic: No Adenopathy Was a procedure done? Was a procedure done?: No Differential Dx Considerations may include: Anemia, electrolyte imbalance, hypertensive urgency X-Ray, Labs, Meds, VS Vital Signs Date Time Temp Pulse Resp B/P (MAP) Pulse Ox O2 Delivery O2 Flow Rate FiO2 09/24/25 00:47 153/70 09/24/25 00:34 Room Air* 0 21 09/24/25 00:34 97.9 67 19 153/70 (97) 96 97.9 09/23/25 21:20 98.0 72 18 154/94 96 98.0 Lab Test 09/24/25 00:43 09/23/25 23:27 09/23/25 22:34 Range/Units POC Glucose 134 H 70-106 mg/dl Troponin I High Sensitivity 7 7 </=54 ng/L White Blood Count 10.3 # 4.4-10.8 10^3/uL Red Blood Count 5.29 4.5-5.90 10^6/uL Hemoglobin 15.4 13.5-17.5 g/dL Hematocrit 43.4 41.0-53.0 % Mean Corpuscular Volume 82.1 80.0-100.0 fL Mean Corpuscular Hemoglobin 29.2 28.0-32.0 pg Mean Corpuscular Hemoglobin Concent 35.5 32.0-36.0 g/dL Red Cell Distribution Width 12.1 11.8-14.3 % Platelet Count 311 140-450 10^3/uL Mean Platelet Volume 8.0 6.9-10.8 fL Neutrophils (%) (Auto) 67.3 37.0-80.0 % Lymphocytes (%) (Auto) 22.1 10.0-50.0 % Monocytes (%) (Auto) 9.1 0.0-12.0 % Eosinophils (%) (Auto) 0.6 0.0-7.0 % Basophils (%) (Auto) 0.9 0.0-2.0 % Neutrophils # (Auto) 6.9 1.6-8.6 10 ^3/uL Lymphocytes # (Auto) 2.3 0.4-5.4 10 ^3/uL Monocytes # (Auto) 0.9 0-1.3 10 ^3/uL Eosinophils # (Auto) 0.1 0-0.8 10 ^3/uL Basophils # (Auto) 0.1 0-0.2 10 ^3/uL Nucleated Red Blood Cells 0.0 % Sodium Level 127 #L 136-145 mmol/L Potassium Level 4.7 3.5-5.1 mmol/L Chloride Level 94 L 98-107 mmol/L Carbon Dioxide Level 25 20-31 mmol/L Anion Gap 8 5-15 Blood Urea Nitrogen 15 9-23 mg/dL Creatinine 1.01 0.700-1.30 mg/dL Glomerular Filtration Rate Calc 79 >90 mL/min BUN/Creatinine Ratio 14.9 10.0-20.0 Serum Glucose 122 H 74-106 mg/dL Calcium Level 9.4 8.7-10.4 mg/dL Total Bilirubin 0.8 0.2-1.0 mg/dL Aspartate Amino Transferase (AST) 26 13-40 U/L Alanine Aminotransferase (ALT) 30 7-40 U/L Alkaline Phosphatase 80 46-116 U/L Total Protein 7.9 5.7-8.2 g/dL Albumin 4.6 3.2-4.8 g/dL Current Medications Medications (Trade) Dose Ordered Sig/Grabiel Route Start Time Stop Time Status Last Admin Hydralazine HCl (Apresoline Tablet) 25 mg ONCE ONCE PO 09/23/25 23:00 09/23/25 23:01 DC 09/24/25 00:47 Time of 1ST Reevaluation: 22:42 Reevaluation 1ST: Unchanged Patient Education/Counseling: Diagnosis, Treatment Family Education/Counseling: No Family Present SEPSIS Sepsis Screen Date sepsis recognized/suspect: Sep 23, 2025 Time Sepsis recognized/suspect: 2121 Recent Procedure: No On Antibiotic Therapy: No Respiratory Rate >20: No Heart Rate >90: No Temp<36 C (96.8 F) or >38.3 C: No SBP <90 or MAP <65 mmHG: No New Acute Mental Status Change: No Is the patient on CPAP, BIPAP,: No Physician Orders Electrocardigram (09/23/25 22:26) Vital Signs Date Time Temp Pulse Resp B/P (MAP) Pulse Ox O2 Delivery O2 Flow Rate FiO2 09/24/25 00:47 153/70 09/24/25 00:34 Room Air* 0 21 09/24/25 00:34 97.9 67 19 153/70 (97) 96 97.9 09/23/25 21:20 98.0 72 18 154/94 96 98.0 Laboratory Tests Test 09/23/25 22:34 White Blood Count 10.3 10^3/uL (4.4-10.8) # Departure 1 Departure Time of Disposition: 00:40 Impression: Primary Impression: Hypertensive urgency Disposition: HOME / SELF CARE / HOMELESS Condition: Stable e-Prescriptions Hydralazine Hcl (Hydralazine Hcl) 25 Mg Tab 25 MG PO BID for 90 Days, #180 TAB 3 Refills Prov: POLLY CHANG MD 09/23/25 Discharged With: Self Critical Care Note Critical Care Time?: No Stability Stability form required: No Heart Score Heart Score: Heart Score Response (Comments) Value History N/A 0 EKG N/A 0 Age N/A 0 Risk Factors N/A 0 Troponin N/A 0 Total 0 I personally scribed for POLLY CHANG MD ([email or web address]) on 09/23/25 at 22:53. Electronically submitted by Michael Restrepo ([email or web address]). POLLY CHANG MD Sep 23, 2025 22:53
[2025-09-23 23:09] LABS: Alanine Aminotransferase 30 U/L (7-40); Albumin 4.6 g/dL (3.2-4.8); Alkaline Phosphatase 80 U/L (46-116); Anion Gap 8 (5-15); BUN/Creatinine Ratio 14.9 (10.0-20.0); Bilirubin, Total 0.8 mg/dL (0.2-1.0); Blood Urea Nitrogen 15 mg/dL (9-23); Calcium 9.4 mg/dL (8.7-10.4); Carbon Dioxide 25 mmol/L (20-31); Potassium 4.7 mmol/L (3.5-5.1); Total Protein 7.9 g/dL (5.7-8.2)
[2025-09-23 23:14] LABS: Chloride 94 mmol/L (98-107); Glucose 122 mg/dL (74-106); Sodium 127 mmol/L (136-145)
[2025-09-23] MEDS ORDERED: HYDR25TA88 PO (23:48)
[2025-09-24 00:34] VITALS: BP 153/70; PULSE 67; RESP 19; TEMP 97.9; O2SAT 96
== END 2025-09-24 01:02 | disposition home or self-care (01) ==
LOC: ER 21:17
DX: I16.0 Hypertensive urgency (principal); I10 Essential (primary) hypertension; E11.9 Type 2 diabetes mellitus without complications; Z79.84 Long term (current) use of oral hypoglycemic drugs; Z79.899 Other long term (current) drug therapy
CPT/HCPCS: 36415; 80053; 82947; 82962; 84484; 85025

== ENCOUNTER 2025-09-27 22:12 | Emergency (ER) | payer OTHER ==
[~2025-09-27 22:12] MED LIST changes: +HYDR25TA88 PO
== END 2025-09-27 22:13 | disposition left against medical advice (07) ==
LOC: ER 22:12
DX: I10 Essential (primary) hypertension (principal); Z53.21 Procedure and treatment not carried out due to patient leaving prior to being seen by health care provider